=== PATIENT | female | born 2000 | race Caucasian/White ===

== ENCOUNTER 2021-05-08 09:21 | Emergency (ER) | payer OTHER ==
[~2021-05-08] VITALS: Ht 170.2 cm; Wt 160.1 kg
--- OUTSIDE RECORDS SUMMARY | 2021-05-08 11:06 | XMS ---
PreManage Notification: REGGIE RAMOS Security Enterprise Solutions Architect Events No recent Security Events currently on file CRITERIA MET - 6 ED Visits in 6 Months [facility]: [phone] Anna Barraza Community Health Worker 10/11/2019-Current PHONE: [phone] Eva Marion Community Health Worker 11/27/2020-Current PHONE: [phone] Svetlana has no Care Guidelines for this patient. E.D. VISIT COUNT (12 MO.) 9 [facility] 360 [facility] 1 CARLEEN MinorBryan TOTAL 10 NOTE: Visits indicate total known visits. ED/UCC VISIT TRACKING (12 MO.) 05/08/2021 09:23 [facility] [place] TYPE: Emergency COMPLAINT: - KNEES, UPPER TORSO, R ANKLE, ARMS INJURY 03/15/2021 11:12 [facility] [place] TYPE: Emergency DIAGNOSES: - Left upper quadrant pain - LEFT SIDE ABD PAIN NAUSEA 01/18/2021 09:33 [facility] [place] TYPE: Emergency DIAGNOSES: - CONGESTION - Acute frontal sinusitis, unspecified 01/16/2021 15:24 [facility] [place] TYPE: Emergency DIAGNOSES: - Acute suppurative otitis media without spontaneous rupture of ear drum, left ear - COVID SCREENING 11/25/2020 17:35 [facility] [place] TYPE: Emergency DIAGNOSES: - Low back pain - BACK PAIN OJI 11/10/2020 10:02 [facility] [place] TYPE: Emergency DIAGNOSES: - Unspecified injury of left lower leg, initial encounter - FALL KNEE PAIN 11/02/2020 20:12 [facility] [place] TYPE: Emergency DIAGNOSES: - Cervicalgia - NECK PAIN WEAKNESS - Paresthesia of skin 10/22/2020 13:32 [facility] [place] TYPE: Emergency DIAGNOSES: - Cervicalgia - NECK PAIN 09/17/2020 13:03 [email or web address] DIAGNOSES: - Lumbago with sciatica, right side - R HIP PAIN/NUMBNESS 06/15/2020 11:20 [facility] DIAGNOSES: - Generalized abdominal pain - BACK PAIN, ABDOMINAL PAIN INPATIENT VISIT TRACKING (12 MO.) No inpatient visits to display in this time frame [id number]
== END 2021-05-08 11:18 | disposition home or self-care (01) ==
LOC: ED 09:21
DX: S93.401A Sprain of unspecified ligament of right ankle, initial encounter (principal); S50.11XA Contusion of right forearm, initial encounter; S50.02XA Contusion of left elbow, initial encounter; S80.02XA Contusion of left knee, initial encounter; S80.01XA Contusion of right knee, initial encounter; J45.909 Unspecified asthma, uncomplicated; K58.9 Irritable bowel syndrome, unspecified; Z88.5 Allergy status to narcotic agent; W18.30XA Fall on same level, unspecified, initial encounter
CPT/HCPCS: 73560; 73610; 99283-25

== ENCOUNTER 2021-05-13 15:58 | Emergency (ER) | payer OTHER ==
[~2021-05-13] VITALS: Ht 170.2 cm; Wt 160.4 kg
--- OUTSIDE RECORDS SUMMARY | 2021-05-13 16:02 | XMS ---
PreManage Notification: REGGIE RAMOS Security Post Anesthesia Room Nurse Events No recent Security Events currently on file CRITERIA MET - 6 ED Visits in 6 Months - [facility] - 2 Visits in 30 Days CARE PROVIDERS RAJESH [facility] Current PHONE: [phone] Anna Barraza Community Health Worker 10/11/2019-Current PHONE: [phone] Eva Marion Community Health Worker 11/27/2020-Current PHONE: [phone] Svetlana has no Care Guidelines for this patient. E.D. VISIT COUNT (12 MO.) 9 [facility] [address] [facility] Lydia H. TOTAL 11 NOTE: Visits indicate total known visits. ED/UCC VISIT TRACKING (12 MO.) 05/13/2021 16:00 [place] TYPE: Emergency COMPLAINT: - R KNEE/HIP, SHOULDER BLADE PAIN, EQUILIBRIUM OFF 05/08/2021 09:23 [facility] [place] TYPE: Emergency COMPLAINT: - KNEES, UPPER TORSO, R ANKLE, ARMS INJURY DIAGNOSES: - Contusion of right knee, initial encounter - Fall on same level, unspecified, initial encounter - Unspecified asthma, uncomplicated - Contusion of left knee, initial encounter - Sprain of unspecified ligament of right ankle, initial encounter - Pain in right knee - Contusion of left elbow, initial encounter - Allergy status to narcotic agent - Contusion of right forearm, initial encounter - Irritable bowel syndrome without diarrhea 03/15/2021 11:12 [facility] [employer] [place] TYPE: Emergency DIAGNOSES: - Left upper quadrant pain - LEFT SIDE ABD PAIN NAUSEA [facility]18[facility]2021 09[facility] DIAGNOSES: - CONGESTION - Acute frontal sinusitis, unspecified 01/16/2021 15:24 [facility] [employer] [place] TYPE: Emergency DIAGNOSES: - Acute suppurative otitis media without spontaneous rupture of ear drum, left ear - COVID SCREENING 11/25/2020 17:35 [employer] [place] TYPE: Emergency DIAGNOSES: - Low back pain - BACK PAIN OJI 11/10/2020 10:02 [employer] [facility] [place] TYPE: Emergency DIAGNOSES: - Unspecified injury of left lower leg, initial encounter - FALL KNEE PAIN 11/02/2020 20:12 [employer] [facility] [place] TYPE: Emergency DIAGNOSES: - Cervicalgia - NECK PAIN WEAKNESS - Paresthesia of skin 10/22/2020 13:32 [facility] [place] TYPE: Emergency DIAGNOSES: - Cervicalgia - NECK PAIN 09/17/2020 13:03 [facility] [place] TYPE: Emergency DIAGNOSES: - Lumbago with sciatica, right side - R HIP PAIN/NUMBNESS 06/15/2020 11:20 [facility] [place] TYPE: Emergency DIAGNOSES: - Generalized abdominal pain - BACK PAIN, ABDOMINAL PAIN INPATIENT VISIT TRACKING (12 MO.) No inpatient visits to display in this time frame [id number]
[2021-05-13] MEDS ORDERED: DICYCLOMINE HCL10 MG PO (16:19)
== END 2021-05-13 17:43 | disposition home or self-care (01) ==
LOC: ED 15:58
DX: S93.401A Sprain of unspecified ligament of right ankle, initial encounter (principal); S96.911A Strain of unspecified muscle and tendon at ankle and foot level, right foot, initial encounter; S83.91XA Sprain of unspecified site of right knee, initial encounter; G43.909 Migraine, unspecified, not intractable, without status migrainosus; J45.909 Unspecified asthma, uncomplicated; K58.9 Irritable bowel syndrome, unspecified; Z88.5 Allergy status to narcotic agent; Z79.899 Other long term (current) drug therapy; W18.30XA Fall on same level, unspecified, initial encounter
CPT/HCPCS: 96372; 99283; J1885

== ENCOUNTER 2022-04-03 14:43 | Emergency (ER) | payer OTHER ==
[~2022-04-03] VITALS: Ht 170.2 cm; Wt 178.3 kg
[~2022-04-03 14:43] MED LIST: DICYCLOMINE HCL10 MG PO
[2022-04-03] MEDS ORDERED: PREDNISONE20 MG PO (16:02)
[2022-04-03] MEDS ORDERED: VENTOLIN HFA18 GM INH (16:02)
== END 2022-04-03 16:35 | disposition home or self-care (01) ==
LOC: ED 14:43
DX: J45.901 Unspecified asthma with (acute) exacerbation (principal); B34.9 Viral infection, unspecified; G43.909 Migraine, unspecified, not intractable, without status migrainosus; Z88.8 Allergy status to other drugs, medicaments and biological substances
CPT/HCPCS: 94640; 94664; 99283-25; A9270; J7512

== ENCOUNTER 2022-04-05 12:07 | Emergency (ER) | payer OTHER ==
[~2022-04-05] VITALS: Ht 170.2 cm; Wt 177.5 kg
[~2022-04-05 12:07] MED LIST changes: +PREDNISONE20 MG PO; +VENTOLIN HFA18 GM INH
--- OUTSIDE RECORDS SUMMARY | 2022-04-05 13:01 | XMS ---
PreManage Notification: REGGIE RAMOS Security Bakery And Deli Sales Manager Events No recent Security Events currently on file CRITERIA MET - [facility] - 2 Visits in 30 Days CARE PROVIDERS FARIDEH LOVE Physician Fuel System Maintenance Worker Current PHONE: [phone] Anna Barraza Community Health Worker 10/11/2019-Current PHONE: [phone] Eva Marion Community Health Worker 11/27/2020-Current PHONE: [phone] Svetlana has no Care Guidelines for this patient. E.D. VISIT COUNT (12 MO.) 5 [place] [place] TOTAL 5 NOTE: Visits indicate total known visits. ED/UCC VISIT TRACKING (12 MO.) 04/05/2022 12:07 [place] TYPE: Emergency COMPLAINT: - COLD SYMPTOMS 04/03/2022 14:44 [place] TYPE: Emergency COMPLAINT: - COLD SYMPTOMS 12/10/2021 12:14 [place] TYPE: Emergency COMPLAINT: - L EAR MUFFLED HEARING 05/13/2021 16:00 [place] TYPE: Emergency COMPLAINT: - R KNEE/HIP, SHOULDER BLADE PAIN, EQUILIBRIUM OFF DIAGNOSES: - Other senior living (current) drug therapy - Sprain of unspecified site of right knee, initial encounter - Fall on same level, unspecified, initial encounter - Unspecified asthma, uncomplicated - Migraine, unspecified, not intractable, without status migrainosus - Allergy status to narcotic agent - Irritable bowel syndrome without diarrhea - Pain in right knee - Strain of unspecified muscle and tendon at ankle and foot level, right foot, initial encounter - Sprain of unspecified ligament of right ankle, initial encounter 05/08/2021 09:23 [place] TYPE: Emergency COMPLAINT: - KNEES, UPPER TORSO, R ANKLE, ARMS INJURY DIAGNOSES: - Contusion of left knee, initial encounter - Fall on same level, unspecified, initial encounter - Contusion of right forearm, initial encounter - Contusion of left elbow, initial encounter - Sprain of unspecified ligament of right ankle, initial encounter - Unspecified asthma, uncomplicated - Irritable bowel syndrome without diarrhea - Contusion of right knee, initial encounter - Allergy status to narcotic agent - Pain in right knee INPATIENT VISIT TRACKING (12 MO.) No inpatient visits to display in this time frame [id number]
== END 2022-04-05 14:41 | disposition home or self-care (01) ==
LOC: ED 12:07
DX: J45.901 Unspecified asthma with (acute) exacerbation (principal); B34.9 Viral infection, unspecified; G43.909 Migraine, unspecified, not intractable, without status migrainosus; Z88.5 Allergy status to narcotic agent; Z79.899 Other long term (current) drug therapy
CPT/HCPCS: 94640; 99283-25

== ENCOUNTER 2022-04-24 02:30 | Emergency (ER) | payer OTHER ==
[~2022-04-24] VITALS: Ht 170.2 cm; Wt 181.4 kg
--- OUTSIDE RECORDS SUMMARY | 2022-04-24 02:40 | XMS ---
PreManage Notification: REGGIE RAMOS Security [employer] Cord Events No recent Security Events currently on file CRITERIA MET - [facility] - 2 Visits in 30 Days CARE PROVIDERS FARIDHE LOVE Physician Home Care Provider Current PHONE: [phone] Anna Barraza Community Health Worker 10/11/2019-Current PHONE: [phone] Eva Marion Community Health Worker 11/27/2020-Current PHONE: [phone] Svetlana has no Care Guidelines for this patient. E.D. VISIT COUNT (12 MO.) [address] [facility] TOTAL 6 NOTE: Visits indicate total known visits. ED/UCC VISIT TRACKING (12 MO.) 04/24/2022 02:33 [place] TYPE: Emergency COMPLAINT: - JITTERY 04/05/2022 12:07 [place] TYPE: Emergency COMPLAINT: - COLD SYMPTOMS DIAGNOSES: - Viral infection, unspecified - Other fatigue - Migraine, unspecified, not intractable, without status migrainosus - Allergy status to narcotic agent - Unspecified asthma with (acute) exacerbation - Other silk spreader (current) drug therapy 04/03/2022 14:44 [facility] [place] TYPE: Emergency COMPLAINT: - COLD SYMPTOMS DIAGNOSES: - Viral infection, unspecified - Unspecified asthma with (acute) exacerbation - Cough, unspecified - Allergy status to other drugs, medicaments and biological substances - Migraine, unspecified, not intractable, without status migrainosus 12/10/2021 12:14 [place] TYPE: Emergency COMPLAINT: - L EAR MUFFLED HEARING 05/13/2021 16:00 [place] TYPE: Emergency COMPLAINT: - R KNEE/HIP, SHOULDER BLADE PAIN, EQUILIBRIUM OFF DIAGNOSES: - Irritable bowel syndrome without diarrhea - Pain in right knee - Strain of unspecified muscle and tendon at ankle and foot level, right foot, initial encounter - Sprain of unspecified ligament of right ankle, initial encounter - Other fpc (current) drug therapy - Sprain of unspecified site of right knee, initial encounter - Fall on same level, unspecified, initial encounter - Unspecified asthma, uncomplicated - Migraine, unspecified, not intractable, without status migrainosus - Allergy status to narcotic agent 05/08/2021 09:23 [place] TYPE: Emergency COMPLAINT: - KNEES, UPPER TORSO, R ANKLE, ARMS INJURY DIAGNOSES: - Irritable bowel syndrome without diarrhea - Contusion of right knee, initial encounter - Allergy status to narcotic agent - Pain in right knee - Contusion of left knee, initial encounter - Fall on same level, unspecified, initial encounter - Contusion of right forearm, initial encounter - Contusion of left elbow, initial encounter - Sprain of unspecified ligament of right ankle, initial encounter - Unspecified asthma, uncomplicated INPATIENT VISIT TRACKING (12 MO.) No inpatient visits to display in this time frame [id number]
--- NOTE | 2022-04-24 07:50 | EKG ---
[facility] [address] [facility] [place] [address] Signed Sinus tachycardia Otherwise normal ECG No previous ECGs available Confirmed by CHECO FERNANDEZ MD ([id number]) on 04/24/2022 7:50:04 AM Electronically Signed By: CHECO FERNANDEZ MD 04/24/22 0750 PATIENT NAME: REGGIE RAMOS Electrocardiogram DATE OF : 89 PHYSICIAN: CHECO FERNANDEZ MD REPORT #: [id number] REPORT IS CONFIDENTIAL AND NOT TO BE RELEASED WITHOUT AUTHORIZATION
== END 2022-04-24 06:23 | disposition home or self-care (01) ==
LOC: ED 02:30
DX: R42 Dizziness and giddiness (principal); T43.95XA Adverse effect of unspecified psychotropic drug, initial encounter; J45.909 Unspecified asthma, uncomplicated; G43.909 Migraine, unspecified, not intractable, without status migrainosus; Z88.5 Allergy status to narcotic agent
CPT/HCPCS: 36415; 80053; 81003; 84703; 85025; 93005; 93010; 96360; 96361; 99284-25; J7121

== ENCOUNTER 2022-06-02 23:35 | Emergency (ER) | payer OTHER ==
[~2022-06-02] VITALS: Ht 152.4 cm; Wt 181.6 kg
[2022-06-03] MEDS ORDERED: DOXYCYCLINE HY100 MG PO (01:19)
== END 2022-06-03 01:31 | disposition home or self-care (01) ==
LOC: ED 23:35
DX: L03.116 Cellulitis of left lower limb (principal); J45.909 Unspecified asthma, uncomplicated; G43.909 Migraine, unspecified, not intractable, without status migrainosus; Z88.5 Allergy status to narcotic agent
CPT/HCPCS: 93971; 99283-25; A9270

== ENCOUNTER 2022-08-01 20:05 | Emergency (ER) | payer OTHER ==
[~2022-08-01] VITALS: Ht 170.2 cm; Wt 185.6 kg
[~2022-08-01 20:05] MED LIST changes: +DOXYCYCLINE HY100 MG PO
[2022-08-01 21:40] VITALS: BP 111/66
== END 2022-08-01 21:40 | disposition home or self-care (01) ==
LOC: ED 20:05
DX: R51.9 Headache, unspecified (principal); J45.909 Unspecified asthma, uncomplicated; Z88.5 Allergy status to narcotic agent; Z79.899 Other long term (current) drug therapy
CPT/HCPCS: J1200; J1885; J2765; J7030

== ENCOUNTER 2022-09-25 08:58 | Emergency (ER) | payer OTHER ==
[~2022-09-25] VITALS: Ht 170.2 cm; Wt 185.5 kg
--- OUTSIDE RECORDS SUMMARY | 2022-09-25 09:07 | XMS ---
PreManage Notification: REGGIE RAMOS Security Supervisor Photoengraving Events No recent Security Events currently on file CRITERIA MET - 6 ED Visits in 6 Months CARE PROVIDERS -, [place]- Dentist: Site Damage Prevention Technician [facility] PHONE: [phone] FARIDEH LOVE Physician Vice President Of Academic Affairs Current PHONE: [phone] Anna Barraza Community Health Worker 10/11/2019-Current PHONE: [phone] Eva Marion Community Health Worker 11/27/2020-Current PHONE: [phone] Svetlana has no Care Guidelines for this patient. [facility] VISIT COUNT (12 MO.) 7 CARLEEN [place] TOTAL 7 NOTE: Visits indicate total known visits. ED/UCC VISIT TRACKING (12 MO.) 09/25/2022 08:58 [place] TYPE: Emergency COMPLAINT: - MEDICAL CLEARANCE 08/01/2022 20:05 [place] TYPE: Emergency COMPLAINT: - HEADACHE DIAGNOSES: - Allergy status to narcotic agent - Headache, unspecified - Other halfway (current) drug therapy - Unspecified asthma, uncomplicated 06/02/2022 23:36 [place] TYPE: Emergency COMPLAINT: - LT LOWER LEG SWELLING DIAGNOSES: - Allergy status to narcotic agent - Cellulitis of left lower limb - Migraine, unspecified, not intractable, without status migrainosus - Other specified soft tissue disorders - Unspecified asthma, uncomplicated 04/24/2022 02:33 [place] TYPE: Emergency COMPLAINT: - JITTERY DIAGNOSES: - Adverse effect of unspecified psychotropic drug, initial encounter - Allergy status to narcotic agent - Dizziness and giddiness - Migraine, unspecified, not intractable, without status migrainosus - Unspecified asthma, uncomplicated 04/05/2022 12:07 [place] TYPE: Emergency COMPLAINT: - COLD SYMPTOMS DIAGNOSES: - Allergy status to narcotic agent - Migraine, unspecified, not intractable, without status migrainosus - Other fatigue - Other halfway (current) drug therapy - Unspecified asthma with (acute) exacerbation - Viral infection, unspecified 04/03/2022 14:44 [place] TYPE: Emergency COMPLAINT: - COLD SYMPTOMS DIAGNOSES: - Allergy status to other drugs, medicaments and biological substances - Cough, unspecified - Migraine, unspecified, not intractable, without status migrainosus - Unspecified asthma with (acute) exacerbation - Viral infection, unspecified 12/10/2021 12:14 [place] TYPE: Emergency COMPLAINT: - L EAR MUFFLED HEARING INPATIENT VISIT TRACKING (12 MO.) No inpatient visits to display in this time frame [id number]
[2022-09-25 11:55] VITALS: BP 144/88
== END 2022-09-25 11:55 | disposition home or self-care (01) ==
LOC: ED 08:58
DX: F33.9 Major depressive disorder, recurrent, unspecified (principal); R94.6 Abnormal results of thyroid function studies; J45.909 Unspecified asthma, uncomplicated; Z88.5 Allergy status to narcotic agent; Z79.899 Other long term (current) drug therapy
CPT/HCPCS: 36415; 80053; 84443; 85025; 99284; G0480

== ENCOUNTER 2022-10-17 07:16 | Emergency (ER) | payer OTHER ==
[~2022-10-17] VITALS: Ht 170.2 cm; Wt 190.4 kg
--- OUTSIDE RECORDS SUMMARY | ~2022-10-17 | XMS | Continuity of Care Document ---
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 + | Result panel 82 | + + + + + + +---------+ + + | (unknown) | (no date) | (unknown) | [facility] | (no | (units | (unknown) | | | | [facility] | value) | unknown) | | | | | [facility] | | | | + + + + +---------+ + + + + | Result panel 83 | + + + + + + +---------+ + + | (unknown) | (no date) | (unknown) | [facility] | (no | (units | (unknown) | | | | [facility] | value) | unknown) | | | | | [facility] | | | | + + + + +---------+ + + + + | Result panel 84 | + + + + + + +---------+ + + | (unknown) | (no date) | (unknown) | [facility] | (no | (units | (unknown) | | | | [facility] | value) | unknown) | | | | [facility] | | | | + + + + +---------+ + + + + | Result panel 85 | + + + + + + +---------+ + + | (unknown) | (no date) | (unknown) | [facility] | (no | (units | (unknown) | | | | [facility] | value) | unknown) | | | | [facility] | | | | + + + + +---------+ + + + + | Result panel 86 | + + + + + + +---------+ + + | (unknown) | (no date) | (unknown) | [facility] | (no | (units | (unknown) | | | | [facility] | value) | unknown) | | | | [facility] | | | | + + + + +---------+ + + + + | Result panel 87 | + + + + + + +---------+ + + | (unknown) | (no date) | (unknown) | [facility] | (no | (units | (unknown) | | | | [facility] | value) | unknown) | | | | [facility] | | | | + + + + +---------+ + + + + | Result panel 88 | + + + + + + +---------+ + + | (unknown) | (no date) | (unknown) | [facility] | (no | (units | (unknown) | | | | [facility] | value) | unknown) | | | | | [facility] | | | | + + + + +---------+ + + + + | Result panel 89 | + + + + + + +---------+ + + | (unknown) | (no date) | (unknown) | [facility] | (no | (units | (unknown) | | | | [facility] | value) | unknown) | | | | | [facility] | | | | + + + + +---------+ + + + + | Result panel 90 | + + + + + + +---------+ + + | (unknown) | (no date) | (unknown) | [facility] | (no | (units | (unknown) | | | | [facility] | value) | unknown) | | | | | [facility] | | | | + + + + +---------+ + + + + | Result panel 91 | + + + + + + +---------+ + + | (unknown) | (no date) | (unknown) | [facility] | (no | (units | (unknown) | | | | [facility] | value) | unknown) | | | | | [facility] | | | | + + + + +---------+ + + + + | Result panel 92 | + + + + + + +---------+ + + | (unknown) | (no date) | (unknown) | [facility] | (no | (units | (unknown) | | | | [facility] | value) | unknown) | | | | [facility] | | | | + + + + +---------+ + + + + | Result panel 93 | + + + + + + +---------+ + + | (unknown) | (no date) | (unknown) | [facility] | (no | (units | (unknown) | | | | [facility] | value) | unknown) | | | | [facility] | | | | + + + + +---------+ + + + + | Result panel 94 | + + + + + + +---------+ + + | (unknown) | (no date) | (unknown) | [facility] | (no | (units | (unknown) | | | | [facility] | value) | unknown) | | | | [facility] | | | | + + + + +---------+ + + + + | Result panel 95 | + + + + + + +---------+ + + | (unknown) | (no date) | (unknown) | [facility] | (no | (units | (unknown) | | | | [facility] | value) | unknown) | | | | [facility] | | | | + + + + +---------+ + + + + | Result panel 96 | + + + + + + +---------+ + + | (unknown) | (no date) | (unknown) | [facility] | (no | (units | (unknown) | | | | [facility] | value) | unknown) | | | | [facility] | | | | + + + + +---------+ + + + + | Result panel 97 | + + + + + + +---------+ + + | (unknown) | (no date) | (unknown) | [facility] | (no | (units | (unknown) | | | | [facility] | value) | unknown) | | | | [facility] | | | | + + + + +---------+ + + + + | Result panel 98 | + + + + + + +---------+ + + | (unknown) | (no date) | (unknown) | [facility] | (no | (units | (unknown) | | | | [facility] | value) | unknown) | | | | | [facility] | | | | + + + + +---------+ + + Social History + + + + | date | description | facility | + + + + | 2021-12-10 00:00 | Unknown if ever smoked | [facility] | + + + + | 2022-04-10 00:00 | Unknown if ever smoked | [facility] | + + + + | 2022-04-24 00:00 | Unknown if ever smoked | [facility] | + + + + | 2022-06-03 00:00 | Unknown if ever smoked | [facility] | + + + + | 2022-08-01 00:00 | Unknown if ever smoked | [facility] | + + + + | 2022-09-25 00:00 | Unknown if ever smoked | [facility] | + + + + | 2022-10-07 00:00 | Unknown if ever smoked | [facility] | + + + + Vital Signs + + + +---------+ | date | measurement | value | units | + + + +---------+ | 2021-12-10 00:00 | BMI | 59.0 | kg/m2 | + + + +---------+ | 2021-12-10 00:00 | BP_diastolic | 75 | mmHg | + + + +---------+ | 2021-12-10 00:00 | BP_systolic | 137 | mmHg | + + + +---------+ | 2021-12-10 00:00 | heart_rate | 100 | /min | + + + +---------+ | 2021-12-10 00:00 | height_metric | 170.18 | cm | + + + +---------+ | 2021-12-10 00:00 | height_standard | 67 | in | + + + +---------+ | 2021-12-10 00:00 | o2_saturation | 96 | % | + + + +---------+ | 2021-12-10 00:00 | respiration_rate | 16 | /min | + + + +---------+ | 2021-12-10 00:00 | temperature_metric | 36.56 | C | | | | | | + + + +---------+ | 2021-12-10 00:00 | | 97.8 | F | | | temperature_standar | | | | | d | | | + + + +---------+ | 2021-12-10 00:00 | weight_metric | 170.9 | kg | + + + +---------+ | 2021-12-10 00:00 | weight_standard | 376.77 | lb | + + + +---------+ | 2022-04-03 00:00 | BMI | 61.6 | kg/m2 | + + + +---------+ | 2022-04-03 00:00 | BP_diastolic | 81 | mmHg | + + + +---------+ | 2022-04-03 00:00 | BP_systolic | 133 | mmHg | + + + +---------+ | 2022-04-03 00:00 | heart_rate | 107 | /min | + + + +---------+ | 2022-04-03 00:00 | height_metric | 170.18 | cm | + + + +---------+ | 2022-04-03 00:00 | height_standard | 67 | in | + + + +---------+ | 2022-04-03 00:00 | o2_saturation | 98 | % | + + + +---------+ | 2022-04-03 00:00 | respiration_rate | 14 | /min | + + + +---------+ | 2022-04-03 00:00 | temperature_metric | 36.5 | C | | | | | | + + + +---------+ | 2022-04-03 00:00 | | 97.7 | F | | | temperature_standar | | | | | d | | | + + + +---------+ | 2022-04-03 00:00 | weight_metric | 178.28 | kg | + + + +---------+ | 2022-04-03 00:00 | weight_standard | 393.04 | lb | + + + +---------+ | 2022-04-03 00:00 | weight_standard | 393.05 | lb | + + + +---------+ | 2022-04-05 00:00 | BMI | 61.3 | kg/m2 | + + + +---------+ | 2022-04-05 00:00 | BP_diastolic | 66 | mmHg | + + + +---------+ | 2022-04-05 00:00 | BP_systolic | 107 | mmHg | + + + +---------+ | 2022-04-05 00:00 | heart_rate | 80 | /min | + + + +---------+ | 2022-04-05 00:00 | height_metric | 170.18 | cm | + + + +---------+ | 2022-04-05 00:00 | height_standard | 67 | in | + + + +---------+ | 2022-04-05 00:00 | o2_saturation | 99 | % | + + + +---------+ | 2022-04-05 00:00 | respiration_rate | 20 | /min | + + + +---------+ | 2022-04-05 00:00 | temperature_metric | 36.83 | C | | | | | | + + + +---------+ | 2022-04-05 00:00 | | 98.3 | F | | | temperature_standar | | | | | d | | | + + + +---------+ | 2022-04-05 00:00 | weight_metric | 177.5 | kg | + + + +---------+ | 2022-04-05 00:00 | weight_standard | 391.32 | lb | + + + +---------+ | 2022-04-24 00:00 | BMI | 62.6 | kg/m2 | + + + +---------+ | 2022-04-24 00:00 | BP_diastolic | 59 | mmHg | + + + +---------+ | 2022-04-24 00:00 | BP_systolic | 125 | mmHg | + + + +---------+ | 2022-04-24 00:00 | heart_rate | 93 | /min | + + + +---------+ | 2022-04-24 00:00 | height_metric | 170.18 | cm | + + + +---------+ | 2022-04-24 00:00 | height_standard | 67 | in | + + + +---------+ | 2022-04-24 00:00 | o2_saturation | 99 | % | + + + +---------+ | 2022-04-24 00:00 | respiration_rate | 19 | /min | + + + +---------+ | 2022-04-24 00:00 | temperature_metric | 36.78 | C | | | | | | + + + +---------+ | 2022-04-24 00:00 | | 98.2 | F | | | temperature_standar | | | | | d | | | + + + +---------+ | 2022-04-24 00:00 | weight_metric | 181.44 | kg | + + + +---------+ | 2022-04-24 00:00 | weight_standard | 400 | lb | + + + +---------+ | 2022-04-24 00:00 | weight_standard | 400.01 | lb | + + + +---------+ | 2022-06-02 00:00 | BMI | 78.2 | kg/m2 | + + + +---------+ | 2022-06-02 00:00 | height_metric | 152.4 | cm | + + + +---------+ | 2022-06-02 00:00 | height_standard | 60 | in | + + + +---------+ | 2022-06-02 00:00 | weight_metric | 181.58 | kg | + + + +---------+ | 2022-06-02 00:00 | weight_standard | 400.31 | lb | + + + +---------+ | 2022-06-02 00:00 | weight_standard | 400.32 | lb | + + + +---------+ | 2022-06-03 00:00 | BP_diastolic | 84 | mmHg | + + + +---------+ | 2022-06-03 00:00 | BP_systolic | 120 | mmHg | + + + +---------+ | 2022-06-03 00:00 | heart_rate | 97 | /min | + + + +---------+ | 2022-06-03 00:00 | o2_saturation | 100 | % | + + + +---------+ | 2022-06-03 00:00 | respiration_rate | 16 | /min | + + + +---------+ | 2022-06-03 00:00 | temperature_metric | 37 | C | | | | | | + + + +---------+ | 2022-06-03 00:00 | | 98.6 | F | | | temperature_standar | | | | | d | | | + + + +---------+ | 2022-08-01 00:00 | BMI | 64.1 | kg/m2 | + + + +---------+ | 2022-08-01 00:00 | BP_diastolic | 66 | mmHg | + + + +---------+ | 2022-08-01 00:00 | BP_systolic | 111 | mmHg | + + + +---------+ | 2022-08-01 00:00 | heart_rate | 90 | /min | + + + +---------+ | 2022-08-01 00:00 | height_metric | 170.18 | cm | + + + +---------+ | 2022-08-01 00:00 | height_standard | 67 | in | + + + +---------+ | 2022-08-01 00:00 | o2_saturation | 97 | % | + + + +---------+ | 2022-08-01 00:00 | respiration_rate | 14 | /min | + + + +---------+ | 2022-08-01 00:00 | temperature_metric | 36.67 | C | | | | | | + + + +---------+ | 2022-08-01 00:00 | | 98 | F | | | temperature_standar | | | | | d | | | + + + +---------+ | 2022-08-01 00:00 | weight_metric | 185.6 | kg | + + + +---------+ | 2022-08-01 00:00 | weight_standard | 409.18 | lb | + + + +---------+ | 2022-09-25 00:00 | BMI | 64.1 | kg/m2 | + + + +---------+ | 2022-09-25 00:00 | BP_diastolic | 88 | mmHg | + + + +---------+ | 2022-09-25 00:00 | BP_systolic | 144 | mmHg | + + + +---------+ | 2022-09-25 00:00 | heart_rate | 104 | /min | + + + +---------+ | 2022-09-25 00:00 | height_metric | 170.18 | cm | + + + +---------+ | 2022-09-25 00:00 | height_standard | 67 | in | + + + +---------+ | 2022-09-25 00:00 | o2_saturation | 100 | % | + + + +---------+ | 2022-09-25 00:00 | respiration_rate | 15 | /min | + + + +---------+ | 2022-09-25 00:00 | temperature_metric | 36.78 | C | | | | | | + + + +---------+ | 2022-09-25 00:00 | | 98.2 | F | | | temperature_standar | | | | | d | | | + + + +---------+ | 2022-09-25 00:00 | weight_metric | 185.52 | kg | + + + +---------+ | 2022-09-25 00:00 | weight_standard | 409 | lb | + + + +---------+ | 2022-10-07 00:00 | BMI | 65.2 | kg/m2 | + + + +---------+ | 2022-10-07 00:00 | BP_diastolic | 88 | mmHg | + + + +---------+ | 2022-10-07 00:00 | BP_systolic | 136 | mmHg | + + + +---------+ | 2022-10-07 00:00 | heart_rate | 94 | /min | + + + +---------+ | 2022-10-07 00:00 | height_metric | 170.18 | cm | + + + +---------+ | 2022-10-07 00:00 | height_standard | 67 | in | + + + +---------+ | 2022-10-07 00:00 | o2_saturation | 96 | % | + + + +---------+ | 2022-10-07 00:00 | respiration_rate | 18 | /min | + + + +---------+ | 2022-10-07 00:00 | temperature_metric | 37.33 | C | | | | | | + + + +---------+ | 2022-10-07 00:00 | | 99.2 | F | | | temperature_standar | | | | | d | | | + + + +---------+ | 2022-10-07 00:00 | weight_metric | 188.97 | kg | + + + +---------+ | 2022-10-07 00:00 | weight_standard | 416.6 | lb | + + + +---------+ | 2022-10-07 00:00 | weight_standard | 416.61 | lb | + + + +---------+"
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
[~2022-10-17 07:16] MED LIST changes: +METHOCARBAMOL500 MG PO; +NAPROSYN500 MG PO
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
[2022-10-17] MEDS ORDERED: ZOLOFT25 MG (08:53)
[2022-10-17] MEDS ORDERED: CEPHALEXIN500 M1 PO ×2 (09:00→09:04)
[2022-10-17 09:17] VITALS: BP 114/70
== END 2022-10-17 09:17 | disposition home or self-care (01) ==
LOC: ED 07:16
DX: L03.116 Cellulitis of left lower limb (principal); J45.909 Unspecified asthma, uncomplicated; Z88.5 Allergy status to narcotic agent
CPT/HCPCS: 36415; 80053; 85025; 93971; 99284 25; A9270

== ENCOUNTER 2022-12-26 07:17 | Emergency (ER) | payer OTHER ==
[~2022-12-26] VITALS: Ht 170.2 cm; Wt 191.3 kg
[~2022-12-26 07:17] MED LIST changes: +CEPHALEXIN500 M1 PO; +ZOLOFT25 MG
[2022-12-26] MEDS ORDERED: CEPHALEXIN500 M1 PO (07:59)
[2022-12-26] MEDS ORDERED: DIFLUCAN200 MG PO (07:59)
[2022-12-26 08:10] VITALS: BP 137/83
== END 2022-12-26 08:09 | disposition home or self-care (01) ==
LOC: ED 07:17
DX: B35.4 Tinea corporis (principal); L03.313 Cellulitis of chest wall; J45.909 Unspecified asthma, uncomplicated; E66.01 Morbid (severe) obesity due to excess calories; Z68.44 Body mass index [BMI] 60.0-69.9, adult; Z88.8 Allergy status to other drugs, medicaments and biological substances; Z79.899 Other long term (current) drug therapy
CPT/HCPCS: 99283

== ENCOUNTER 2022-12-28 10:17 | Emergency (ER) | payer OTHER ==
[~2022-12-28] VITALS: Ht 170.2 cm; Wt 191.3 kg
[~2022-12-28 10:17] MED LIST changes: +DIFLUCAN200 MG PO
--- OUTSIDE RECORDS SUMMARY | 2022-12-28 10:25 | XMS ---
PreManage Notification: REGGIE RAMOS Security Implementation Project Manager Events No recent Security Events currently on file CRITERIA MET - 6 ED Visits in 6 Months - [facility] - 2 Visits in 30 Days CARE PROVIDERS Eva Marion Community Health Worker 11/27/2020-Current PHONE: [phone] Anna Barraza Community Health Worker 10/11/2019-Current PHONE: [phone] -[place]- Dentist: [facility] PHONE: [phone] FARIDEH LOVE Physician [facility] Partner Current PHONE: [phone] Svetlana has no Care Guidelines for this patient. [facility] VISIT COUNT (12 MO.) 10 [facility] TOTAL 10 NOTE: Visits indicate total known visits. ED/UCC VISIT TRACKING (12 MO.) 12/28/2022 10:18 [facility] [place] TYPE: Emergency COMPLAINT: - COLD SYMPTOMS, SORE THROAT, COUGH 12/26/2022 07:18 [facility] [place] TYPE: Emergency COMPLAINT: - SKIN PROBLEMS 10/17/2022 07:16 [facility] [place] TYPE: Emergency COMPLAINT: - L LEG SWOLLEN/PAINFUL DIAGNOSES: - Allergy status to narcotic agent - Cellulitis of left lower limb - Other specified soft tissue disorders - Unspecified asthma, uncomplicated 10/07/2022 13:56 [facility] [place] TYPE: [...] Major depressive disorder, recurrent, unspecified - Other tank terminal gauger (current) drug therapy - Suicidal ideations - Unspecified asthma, uncomplicated 08/01/2022 20:05 [facility] [place] TYPE: Emergency COMPLAINT: - HEADACHE DIAGNOSES: - Allergy status to narcotic agent - Headache, unspecified - [facility] - Unspecified asthma, uncomplicated [...] status migrainosus - Other fatigue - Other [facility] drug therapy - Unspecified asthma with (acute) exacerbation - Viral infection, unspecified 04/03/2022 14:44 [facility] [place] TYPE: Emergency COMPLAINT: - COLD SYMPTOMS DIAGNOSES: - Allergy status to other drugs, medicaments and biological substances - Cough, unspecified - Migraine, unspecified, not intractable, without status migrainosus - Unspecified asthma with (acute) exacerbation - Viral infection, unspecified INPATIENT VISIT TRACKING (12 MO.) No inpatient visits to display in this time frame [id number]
[2022-12-28 11:31] LABS: INFLUENZA B NAA NEGATIVE (NEGATIVE); RESPIRATORY SYNCYTIAL VIR NAA NEGATIVE (NEGATIVE)
[2022-12-28] MEDS ORDERED: PAXLOVID 300-11 EACH PO (11:54)
[2022-12-28 12:10] VITALS: BP 142/77
== END 2022-12-28 12:10 | disposition home or self-care (01) ==
LOC: ED 10:17
PROVIDERS: Emergency Medicine
DX: U07.1 COVID-19 (principal); J45.909 Unspecified asthma, uncomplicated; Z88.5 Allergy status to narcotic agent; Z79.899 Other long term (current) drug therapy
CPT/HCPCS: 87502; 99283; A9270; C9803; U0002

== ENCOUNTER 2023-03-13 09:25 | Emergency (ER) | payer OTHER ==
[~2023-03-13] VITALS: Ht 170.2 cm; Wt 190.7 kg
[~2023-03-13 09:25] MED LIST changes: +PAXLOVID 300-11 EACH PO
--- OUTSIDE RECORDS SUMMARY | 2023-03-13 09:34 | XMS ---
PreManage Notification: REGGIE RAMOS Security Distribution Designer Events No recent Security Events currently on file CRITERIA MET - 6 ED Visits in 6 Months CARE PROVIDERS Eva Marion Community Health Worker 11/27/2020-Current PHONE: [phone] Anna Barraza Community Health Worker 10/11/2019-Current PHONE: [phone] -, [place]- Dentist: Plastic Press Operator [facility] PHONE: [phone] FARIDEH LOVE Physician Accounting Intern Current PHONE: [phone] Svetlana has no Care Guidelines for this patient. [facility] VISIT COUNT (12 MO.) 11 [facility] TOTAL 11 NOTE: Visits indicate total known visits. ED/UCC VISIT TRACKING (12 MO.) 03/13/2023 09:25 [facility] [place] TYPE: Emergency COMPLAINT: - HEADACHE 12/28/2022 10:18 [facility] [place] TYPE: Emergency COMPLAINT: - COLD SYMPTOMS, SORE THROAT, COUGH DIAGNOSES: - Allergy status to narcotic agent - COVID-19 - Fever, unspecified - Other [facility] (current) drug therapy - Unspecified asthma, uncomplicated 12/26/2022 07:18 [facility] [place] TYPE: Emergency COMPLAINT: - SKIN PROBLEMS DIAGNOSES: - Allergy status to other drugs, medicaments and biological substances - Body mass index [BMI] 60.0-69.9, adult - Cellulitis of chest wall - Morbid (severe) obesity due to excess calories - Other [facility] (current) drug therapy - Rash and other nonspecific skin eruption - Tinea corporis - Unspecified asthma, uncomplicated 10/17/2022 07:16 [facility] [place] TYPE: [...] encounter - Unspecified asthma, uncomplicated 09/25/2022 08:58 [facility] [place] TYPE: Emergency COMPLAINT: - MEDICAL CLEARANCE DIAGNOSES: - Abnormal results of thyroid function studies - Allergy status to narcotic agent - Major depressive disorder, recurrent, unspecified - Other longshore equipment operator (current) drug therapy - Suicidal ideations - Unspecified asthma, uncomplicated 08/01/2022 20:[address] [facility] [place] TYPE: Emergency COMPLAINT: - HEADACHE DIAGNOSES: - Allergy status to narcotic agent - Headache, unspecified - Other [facility] (current) drug therapy - Unspecified asthma, uncomplicated [...] status migrainosus - Other fatigue - Other [facility] (current) drug therapy - Unspecified asthma with (acute) exacerbation - Viral infection, unspecified 04/03/2022 14:[address] [facility] [place] TYPE: Emergency COMPLAINT: - COLD SYMPTOMS DIAGNOSES: - Allergy status to other drugs, medicaments and biological substances - Cough, unspecified - Migraine, unspecified, not intractable, without status migrainosus - Unspecified asthma with (acute) exacerbation - Viral infection, unspecified INPATIENT VISIT TRACKING (12 MO.) No inpatient visits to display in this time frame [id number]
[2023-03-13] MEDS ORDERED: BUPROPION XL150 MG PO (09:37)
[2023-03-13] MEDS ORDERED: SERTRALINE HCL25 MG PO (09:38)
[2023-03-13 11:50] VITALS: BP 98/59
== END 2023-03-13 11:50 | disposition home or self-care (01) ==
LOC: ED 09:25
DX: R51.9 Headache, unspecified (principal); Z88.5 Allergy status to narcotic agent; Z79.899 Other long term (current) drug therapy
CPT/HCPCS: J1200; J1885; J2765; J7030

== ENCOUNTER 2023-10-01 05:57 | Emergency (ER) | payer OTHER ==
[~2023-10-01] VITALS: Ht 170.2 cm; Wt 189.5 kg
[~2023-10-01 05:57] MED LIST changes: +BUPROPION XL150 MG PO; +CELECOXIB200 MG PO; +METOCLOPRAMIDE10 MG PO; +ONDANSETRON ODT8 MG PO; +PRAZOSIN HCL1 MG PO; +SERTRALINE HCL25 MG PO; +VITAMIN D21250 MCG PO; +WELLBUTRIN SR150 MG PO
[2023-10-01] MEDS ORDERED: KETOROLAC TROMETHAMINE 30 MG/ML VIAL IM ONE (06:15)
[2023-10-01] MEDS ORDERED: BETAMETHASONE D15 G2 (06:23)
[2023-10-01 07:25] VITALS: BP 122/73
== END 2023-10-01 07:23 | disposition home or self-care (01) ==
LOC: ED 05:57
DX: S80.02XA Contusion of left knee, initial encounter (principal); S80.12XA Contusion of left lower leg, initial encounter; W01.0XXA Fall on same level from slipping, tripping and stumbling without subsequent striking against object, initial encounter; Y99.0 Civilian activity done for income or pay; J45.909 Unspecified asthma, uncomplicated; E66.01 Morbid (severe) obesity due to excess calories; Z68.44 Body mass index [BMI] 60.0-69.9, adult; Z88.5 Allergy status to narcotic agent; Z79.899 Other long term (current) drug therapy
CPT/HCPCS: 73560; 73590; 96372; 99283-25; J1885

== ENCOUNTER 2024-09-23 07:41 | Emergency (ER) | payer OTHER ==
[~2024-09-23] VITALS: Ht 170.2 cm; Wt 190.0 kg
[~2024-09-23 07:41] MED LIST changes: +BETAMETHASONE D15 G2; +HYDROCODON-ACE1 EA10 PO; +KETOROLAC TROME10 MG PO; +OMEPRAZOLE20 MG PO; +ONDANSETRON ODT4 MG SL; +SLYND4 MG PO
[2024-09-23] MEDS ORDERED: VITAMIN B121000 MCG (08:02)
[2024-09-23] MEDS ORDERED: IBUPROFEN 600 MG TAB PO ONE (08:45)
[2024-09-23 08:47] VITALS: BP 137/67
== END 2024-09-23 09:01 | disposition home or self-care (01) ==
LOC: ED 07:41
DX: S90.31XA Contusion of right foot, initial encounter (principal); J45.909 Unspecified asthma, uncomplicated; G47.33 Obstructive sleep apnea (adult) (pediatric); Z88.5 Allergy status to narcotic agent; W20.8XXA Other cause of strike by thrown, projected or falling object, initial encounter; Y93.E1 Activity, personal bathing and showering
CPT/HCPCS: 73630; 99283; A9270

== ENCOUNTER 2024-12-05 11:25 | Emergency (ER) | payer OTHER ==
[~2024-12-05] VITALS: Ht 170.2 cm; Wt 191.0 kg
[~2024-12-05 11:25] MED LIST changes: +VITAMIN B121000 MCG
[2024-12-05 13:15] LABS: CORONAVIRUS COVID-19 AG NEGATIVE (NEGATIVE)
[2024-12-05] MEDS ORDERED: AMOXICILLIN500 MG PO (14:27)
[2024-12-05 14:37] VITALS: BP 122/78
== END 2024-12-05 14:38 | disposition home or self-care (01) ==
LOC: ED 11:25
PROVIDERS: Emergency Medicine
DX: J02.9 Acute pharyngitis, unspecified (principal); J45.909 Unspecified asthma, uncomplicated; E66.9 Obesity, unspecified; Z88.5 Allergy status to narcotic agent; Z79.899 Other long term (current) drug therapy
CPT/HCPCS: 36415; 87651; 99283